=== PATIENT | female | born 2000 | race Two or more races ===

== ENCOUNTER 2020-08-30 19:09 | Emergency (ER) | payer OTHER ==
[~2020-08-30] VITALS: Ht 167.6 cm; Wt 68.0 kg
[2020-08-30] MEDS ORDERED: PROVENTIL HFA6.7 GM (19:34)
== END 2020-08-31 10:11 | disposition home or self-care (01) ==
LOC: ER 19:09
DX: N83.292 Other ovarian cyst, left side (principal); R10.31 Right lower quadrant pain; R10.32 Left lower quadrant pain; Z20.828 Contact with and (suspected) exposure to other viral communicable diseases

== ENCOUNTER 2023-09-28 11:49 | Emergency (ER) | payer OTHER ==
[~2023-09-28] VITALS: Ht 167.6 cm; Wt 66.2 kg
[~2023-09-28 11:49] MED LIST: PROVENTIL HFA6.7 GM
[2023-09-28 15:24] LABS: HEMATOCRIT 42.7 % (36.0-45.00); HEMOGLOBIN 14.8 g/dL (12.0-15.00); MEAN CELL VOLUME 88.5 fL (80.00-100.00); MEAN CORPUSCULAR HEMOGLOBIN 30.8 pg (27.00-32.0); MEAN CORPUSCULAR HGB CONC 34.8 g/dl (32.0-36.0); PLATELET COUNT 285 K/uL (150-450); RED BLOOD COUNT 4.82 M/uL (4.00-6.00); RED CELL DISTRIBUTION WIDTH 13.9 % (11.5-14.5)
== END 2023-09-28 16:13 | disposition home or self-care (01) ==
LOC: ER 11:49
DX: B34.9 Viral infection, unspecified (principal); R53.81 Other malaise; Z20.822 Contact with and (suspected) exposure to COVID-19; Z88.2 Allergy status to sulfonamides

== ENCOUNTER 2024-01-08 07:02 | Inpatient (IN) | payer OTHER ==
[~2024-01-08] VITALS: Ht 167.6 cm; Wt 64.4 kg
--- NOTE | 2024-01-08 07:28 | NUR ---
PTE ALERTA Y ORIENTADA X3 VIENE POR DIFUCILTAD PARA RESPIRAR, REFIERE PADECER DE ASMA. SE MIDEN SV Y PTE SATURA EN 85%, SE REALIZA EKG POR PROTOCOLO DE TRIAGE Y SE PRESENTA A DR. BERKOWITZ QUIEN INDICA UBICAR PTE EN CP.
[2024-01-08] MEDS ORDERED: ALBUTEROL SULFATE 3 ML/2.5 MG AMPUL.NEB IH SCH ×3 (07:30→17:00)
[2024-01-08] MEDS ORDERED: EPINEPHRINE HCL/PF 1 MG/ML AMPUL SUBCUTANEO STA (07:39)
[2024-01-08] MEDS ORDERED: METHYLPREDNISOLONE SOD SUCC 125 MG VIAL IV STA (07:39)
[2024-01-08] MEDS ORDERED: MAGNESIUM SULFATE IN WATER 50 ML IV ONE (07:45)
[2024-01-08] MEDS ORDERED: 0.9 % SODIUM CHLORIDE 500 ML IV ONE (07:45)
[2024-01-08 07:49] LABS: ABG PH 7.409 (7.35-7.45); ABG pCO2 38.2 mmHg (35-45); BASE EXCESS -0.7 mmol/l; BICARBONATE 23.6 mmol/l (23-25); SaO2 87.7 %; Tco2 24.8 mmol/l; o2 21 %
[2024-01-08 07:50] LABS: ABG PO2 53.5 mmHg (80-100); allen test SATISFACTORY; puncture site RADIAL LEFT
--- NOTE | 2024-01-08 07:50 | NUR ---
SE RECIBE PTE ALERTA ORIENTADA X3.POR ORDEN MEDICA DE SE UBICA PTE EN UNIDAD DE CHEST PAIN #17.SE CONECTA A MONITOR CARDIACO [id number](SINUSAL.SE ASHWINI MUESTRAS DE LABORATORIO USANDO MEDIDAS ASEPTICAS.SE REALIZA VENOPUNCION CON ANGIO #18 EN ANTE BRAZO SRINI.SE ADMINISTRAN MEDCICAMENTOS OPAL ORDEN MEDICA.SE COLOCA 0.9 NSS KVO.SE DARRYL XRAY POR TECNICO DE PLACAS.SE ADMINISTRAN TERAPIAS RESPIRATORIAS POR RT ROHENA.SE COLOCA PTE EN V/MASK 35%.PTE TOLERANDO AL MOMENTO.SE ORIENTA LA MISMA SOBRE OBJETIVO DE TX MEDICO.
[2024-01-08 07:56] LABS: HEMATOCRIT 42.2 % (36.0-45.00); HEMOGLOBIN 14.4 g/dL (12.0-15.00); MEAN CELL VOLUME 90.3 fL (80.00-100.00); MEAN CORPUSCULAR HEMOGLOBIN 30.7 pg (27.00-32.0); PLATELET COUNT 315 K/uL (150-450); RED BLOOD COUNT 4.67 M/uL (4.00-6.00); RED CELL DISTRIBUTION WIDTH 14.1 % (11.5-14.5)
[2024-01-08 08:30] LABS: ALBUMIN 3.9 gm/dL (3.4-5.0); BILIRUBIN TOTAL 0.29 mg/dL (0.3-1.2); CALCIUM 9.5 mg/dL (8.5-10.1); CREATININE SERUM 0.89 mg/dL (0.55-1.02); GFR 77.28; GLOBULINA 4.2 G/DL (2.4-3.5); POTASSIUM 3.9 mEq/L (3.5-5.1); TOTAL PROTEIN 8.1 gm/dL (6.4-8.2)
--- NOTE | 2024-01-08 10:30 | NUR ---
SE NOTIFICA TERAPIAS RESPIRATORIO A RT MIRELES.
[2024-01-08 12:07] LABS: PH,URINE 5.5 (5.0-8.0); URINE APPEARANCE Cloudy; URINE BILIRRUBIN Negative (NEGATIVE); URINE COLOR Yellow; URINE GLUCOSE Negative (NEGATIVE); URINE LEUKOCYTE Negative; URINE NITRATE Negative; URINE PROTEIN Negative (NEGATIVE); URINE UROBILINOGEN 0.2 E.U./dl
[2024-01-08 12:08] LABS: URINE EPITHELIAL CELLS 57.4 uL (0.0-38.8); URINE WBC 13.9 uL (0.0-23.2)
[2024-01-08 12:17] LABS: URINE BLOOD TRACE
[2024-01-08] MEDS ORDERED: METHYLPREDNISOLONE SOD SUCC 40 MG VIAL IV SCH (14:36)
[2024-01-08] MEDS ORDERED: FLUTICASONE PROPIONATE 50 MCG SPRAY NASAL SCH (14:39)
[2024-01-08] MEDS ORDERED: LORATADINE 10 MG TABLET PO SCH (14:39)
[2024-01-08] MEDS ORDERED: CEFTRIAXONE SODIUM 1,000 MG VIAL IV SCH (14:40)
[2024-01-08 16:09] LABS: ABG PH 7.441 (7.35-7.45); ABG pCO2 32.5 mmHg (35-45)
[2024-01-08 16:12] LABS: ABG PO2 59.8 mmHg (80-100); BASE EXCESS -1.6 mmol/l; BICARBONATE 21.6 mmol/l (23-25); SaO2 91.5 %; Tco2 22.6 mmol/l; allen test SATISFACTORY; o2 35 %; puncture site RADIAL LEFT
[2024-01-08] MEDS ORDERED: MONTELUKAST SODIUM 10 MG TABLET PO SCH (17:00)
[2024-01-08] MEDS ORDERED: IPRATROPIUM BROMIDE 0.5 MG/2.5 ML AMPUL.NEB IH SCH (17:00)
[2024-01-08] MEDS ORDERED: DOXYCYCLINE HYCLATE 100 MG TABLET PO SCH (21:00)
[2024-01-08] MEDS ORDERED: FAMOTIDINE/PF 20 MG/2 ML VIAL IV SCH (21:00)
[2024-01-09 07:28] LABS: HEMATOCRIT 38.7 % (36.0-45.00); HEMOGLOBIN 13.2 g/dL (12.0-15.00); MEAN CELL VOLUME 89.3 fL (80.00-100.00); MEAN CORPUSCULAR HEMOGLOBIN 30.5 pg (27.00-32.0); MEAN CORPUSCULAR HGB CONC 34.1 g/dl (32.0-36.0); PLATELET COUNT 264 K/uL (150-450); RED BLOOD COUNT 4.33 M/uL (4.00-6.00); RED CELL DISTRIBUTION WIDTH 14.2 % (11.5-14.5)
[2024-01-09 07:53] LABS: ALBUMIN 3.8 gm/dL (3.4-5.0); BILIRUBIN TOTAL 0.39 mg/dL (0.3-1.2); CALCIUM 9.7 mg/dL (8.5-10.1); CREATININE SERUM 0.62 mg/dL (0.55-1.02); GFR 117.28; GLOBULINA 3.5 G/DL (2.4-3.5); MAGNESIUM 2.2 mg/dL (1.8-2.4); PHOSPHOROUS 4.8 mg/dL (2.5-4.9); POTASSIUM 4.3 mEq/L (3.5-5.1); TOTAL PROTEIN 7.3 gm/dL (6.4-8.2)
[2024-01-09 07:54] LABS: C-REACTIVE PROTEIN 0.52 MG/DL (0.00-0.29)
[2024-01-09 08:51] LABS: ERYTHROCYTE SEDIMENTATION RATE 27 mm/hr
[2024-01-09] MEDS ORDERED: ENOXAPARIN SODIUM 40 MG/0.4 ML SYRINGE SUBCUTANEO SCH (09:00)
[2024-01-09] MEDS ORDERED: AZITHROMYCIN 500 MG in 0.9 % SODIUM CHLORIDE 250 ML IV SCH (09:00)
[2024-01-09 13:39] LABS: ABG PH 7.464 (7.35-7.45); ABG PO2 70.4 mmHg (80-100); ABG pCO2 33.6 mmHg (35-45); BASE EXCESS 0.5 mmol/l; BICARBONATE 23.5 mmol/l (23-25); Tco2 24.6 mmol/l; allen test SATISFACTORY; puncture site RADIAL RIGHT
[2024-01-09 13:40] LABS: o2 21 %
[2024-01-10 07:10] LABS: ABG PH 7.454 (7.35-7.45); ABG PO2 83.3 mmHg (80-100); ABG pCO2 33.8 mmHg (35-45); BASE EXCESS 0 mmol/l; BICARBONATE 23.2 mmol/l (23-25)
[2024-01-10 07:11] LABS: Tco2 24.2 mmol/l; allen test SATISFACTORY; o2 21 %; puncture site RADIAL LEFT
[2024-01-10 07:12] LABS: SaO2 96.7 %
[2024-01-10] MEDS ORDERED: BUDESONIDE 0.5 MG/2 ML AMPUL.NEB IH SCH (12:11)
[2024-01-10] MEDS ORDERED: METHYLPREDNISOLONE SOD SUCC 40 MG VIAL IV SCH (17:00)
[2024-01-11] MEDS ORDERED: LORATADINE10 MG PO (13:41)
[2024-01-11] MEDS ORDERED: DOXYCYCLINE HY100 M2 PO (13:42)
[2024-01-11] MEDS ORDERED: MEDROLPACK PO (13:42)
[2024-01-11] MEDS ORDERED: PEPCID AC20 MG PO (13:43)
[2024-01-11] MEDS ORDERED: INTESTINEX680 M1 PO (13:43)
== END 2024-01-11 14:58 | disposition home or self-care (01) | DRG 202 ==
LOC: ER 07:02 → MEDJ 14:56 → SURH 14:56 → SEC-K 14:56 → MEDJ 15:23 → SURH 18:25
PROVIDERS: General Practice; ADMIT Internal Medicine; ATTEND Internal Medicine
DX: J45.51 Severe persistent asthma with (acute) exacerbation (principal); J96.01 Acute respiratory failure with hypoxia; Z20.822 Contact with and (suspected) exposure to COVID-19; B96.0 Mycoplasma pneumoniae [M. pneumoniae] as the cause of diseases classified elsewhere